=== PATIENT | female | born 1950 | race Caucasian/White ===

== ENCOUNTER 2017-09-10 07:20 | Emergency (ER) | payer MEDICARE, OTHER ==
[~2017-09-10] VITALS: Ht 165.1 cm; Wt 59.3 kg
[~2017-09-10 07:20] MED LIST: BUPR100T16; BUSP5TAB3 PO; DICL100G15 TOP; DOCU100C41 PO; HYDR-3717 PO; LAMO150T PO; LEVO75TA PO; LIOT5TAB7 PO; MIRT15TA8 PO; NAPR220C15 PO; OLAN5TAB3 PO; TRAZ-143 PO
[2017-09-10 07:27] VITALS: BP 162/72
[2017-09-10 08:07] LABS: CLARITY,URINE CLEAR (Clear); COLOR,URINE YELLOW (Yellow); GLUCOSE, URINE NEGATIVE (Neg); KETONES,URINE 15 mg/dl (Neg); LEUKOCYTE ESTERASE ,URINE NEGATIVE (Neg); NITRITES, URINE NEGATIVE (Neg); OCCULT BLOOD,URINE MODERATE (Neg); PH,URINE 5.5 (4.8-8.0); PROTEIN,URINE 30 mg/dl (Neg); UROBILINOGEN,URINE 0.2 E.U/dL (0.2-1.0)
[2017-09-10 08:14] LABS: UA COLLECTION TYPE CLN CATCH MIDSTREAM
[2017-09-10 08:16] LABS: BACTERIA,URINE FEW /HPF (Neg); CAL OXALATE CRYSTALS FEW /HPF (NEGATIVE); MUCUS STRANDS MODERATE /LPF (Neg); SQUAMOUS EPITHELIAL CELL,UR FEW /LPF (FEW)
[2017-09-10] MEDS ORDERED: meclizine 12.5mg tablet PO ONE (08:35)
[2017-09-10] MEDS ORDERED: ondansetron 4mg rapidly disintigrating tab PO ONE (08:35)
[2017-09-10] MEDS ORDERED: ONDA4TAB9 SL (08:43)
[2017-09-10] MEDS ORDERED: CEPH-572 PO (08:43)
[2017-09-10] MEDS ORDERED: MECL-111 PO (08:43)
== END 2017-09-10 09:08 | disposition home or self-care (01) ==
LOC: ER 07:20
DX: E86.0 Dehydration (principal); N39.0 Urinary tract infection, site not specified; F15.10 Other stimulant abuse, uncomplicated; Z60.2 Problems related to living alone; Z79.899 Other long term (current) drug therapy
CPT/HCPCS: 81001; 87088; 99284; J8597

== ENCOUNTER 2017-09-19 16:11 | Emergency (ER) | payer MEDICARE, OTHER ==
[~2017-09-19] VITALS: Ht 5451.6 cm; Wt 62.9 kg
[~2017-09-19 16:11] MED LIST changes: +CEPH-572 PO; +MECL-111 PO
[2017-09-19 16:42] LABS: BASOPHILS % (AUTO) 0.8 % (0-1); EOSINOPHILS # (AUTO) 0.1 X10'3 (0-0.9); EOSINOPHILS % (AUTO) 1.3 % (0-6); HEMATOCRIT 43.4 % (35.0-45.0); HEMOGLOBIN 14.9 g/dl (12.0-16.0); LYMPHOCYTES # (AUTO) 1.2 X10'3 (1.1-4.8); LYMPHOCYTES % (AUTO) 21.9 % (21-51); MEAN CORPUSCULAR HEMOGLOBIN 29.3 PG (27.0-31.0); MEAN CORPUSCULAR HGB CONC 34.3 % (33.0-36.5); MEAN CORPUSCULAR VOLUME 85.7 FL (78-98); MEAN PLATELET VOLUME 9.6 FL (7.4-10.4); MONOCYTES # (AUTO) 0.4 X10'3 (0-0.9); MONOCYTES % (AUTO) 7.7 % (2-12); NEUTROPHILS # (AUTO) 3.6 X10'3 (1.8-7.7); NEUTROPHILS % (AUTO) 68.3 % (42-75); PLATELET COUNT 166 X10'3 (140-440); RED BLOOD COUNT 5.06 X10'6 (4.20-5.60); RED CELL DISTRIBUTION WIDTH 13.7 % (11.5-14.5); WHITE BLOOD COUNT 5.3 X10'3 (4.5-11.0)
[2017-09-19 17:06] LABS: ALANINE AMINOTRANSFERASE 22 U/L (12-78); ALKALINE PHOSPHATASE 101 IU/L (46-116); ANION GAP 14 (8-16); ASPARTATE AMINO TRANSFERASE 19 U/L (10-37); BILIRUBIN,TOTAL 0.5 MG/DL (0.1-1.0); BLOOD UREA NITROGEN 13 MG/DL (7-18); BUN/CREATININE RATIO 16.9 (6.6-38.0); CALCIUM 9.1 MG/DL (8.5-10.1); CHLORIDE 100 MMOL/L (99-107); CREATININE 0.77 MG/DL (0.40-0.90); GLUCOSE 73 MG/DL (70-104); POTASSIUM 3.6 MMOL/L (3.5-5.1); SODIUM 141 MMOL/L (135-145); TOTAL CARBON DIOXIDE 27.4 MMOL/L (24-32); eGFR 75 ML/MIN
[2017-09-19 17:08] LABS: ETHANOL < 0.010 GM/DL (0.0-0.010)
[2017-09-19 17:57] VITALS: BP 146/74
[2017-09-19 18:08] LABS: CLARITY,URINE CLEAR (Clear); COLOR,URINE YELLOW (Yellow); GLUCOSE, URINE NEGATIVE (Neg); KETONES,URINE >=80 mg/dl (Neg); LEUKOCYTE ESTERASE ,URINE NEGATIVE (Neg); NITRITES, URINE NEGATIVE (Neg); OCCULT BLOOD,URINE SMALL (Neg); PROTEIN,URINE 30 mg/dl (Neg); UROBILINOGEN,URINE 0.2 E.U/dL (0.2-1.0)
[2017-09-19 18:13] LABS: UA COLLECTION TYPE VOIDED
[2017-09-19 18:17] LABS: URINE AMPHETAMINE SCREEN NEGATIVE (Neg); URINE BARBITUATE SCREEN NEGATIVE (Neg); URINE BENZODIAZEPINES SCREEN NEGATIVE (Neg); URINE CANNABINOID SCREEN NEGATIVE (Neg); URINE COCAINE SCREEN NEGATIVE (Neg); URINE METHADONE SCREEN NEGATIVE (Neg); URINE OPIATE SCREEN NEGATIVE (Neg); URINE PHENCYCLIDINE SCREEN NEGATIVE (Neg)
[2017-09-19 18:18] LABS: BACTERIA,URINE FEW /HPF (Neg); MUCUS STRANDS FEW /LPF (Neg); RBC,URINE 0-2 /HPF (0-2); SQUAMOUS EPITHELIAL CELL,UR MANY /LPF (FEW); WBC,URINE 0-4 /HPF (0-4)
[2017-09-20] MEDS ORDERED: LEVO100T9 PO (01:05)
[2017-09-20] MEDS ORDERED: LIOT5TAB7 PO (01:28)
== END 2017-09-19 22:51 | disposition home or self-care (01) ==
LOC: ER 16:12
DX: F32.9 Major depressive disorder, single episode, unspecified (principal); R45.851 Suicidal ideations; F41.9 Anxiety disorder, unspecified; F15.10 Other stimulant abuse, uncomplicated; Z59.0 Homelessness; Z91.14 Patient's other noncompliance with medication regimen; Z79.899 Other long term (current) drug therapy
CPT/HCPCS: 36415; 80053; 80305; 80320; 81001; 84443; 85025; 99284

== ENCOUNTER 2017-09-19 21:54 | Inpatient (IN) | payer MEDICARE, OTHER ==
[~2017-09-19] VITALS: Ht 165.1 cm; Wt 62.4 kg
[2017-09-19] MEDS ORDERED: hydrOXYzine 10 MG tablet PO PRN (22:45)
[2017-09-19] MEDS ORDERED: OLANZapine 2.5MG tablet PO ONE (23:40)
[2017-09-19] MEDS ORDERED: lamoTRIgine 100mg tablet PO ONE (23:40)
[2017-09-20] MEDS ORDERED: LEVO100T9 PO (01:05)
[2017-09-20] MEDS ORDERED: LIOT5TAB7 PO (01:28)
[2017-09-20] MEDS ORDERED: non-formulary drug (Diclofenac Sodium (Voltaren) 1 GM) TOP SCH (02:00)
[2017-09-20] MEDS ORDERED: levoTHYROXINE 75mcg tablet PO SCH (07:00)
[2017-09-20] MEDS: levoTHYROXINE 100mcg tablet PO SCH (07:14)
[2017-09-20] MEDS ORDERED: buPROPion 100mg tablet PO SCH (07:30)
[2017-09-20 08:00] VITALS: BP 109/61
[2017-09-20] MEDS ORDERED: docusate sod 100mg capsule PO PRN (08:00)
[2017-09-20] MEDS ORDERED: naproxen sodium 220mg tablet PO PRN (08:00)
[2017-09-20] MEDS ORDERED: OLANZapine 5mg rapidly disint. tablet PO PRN (08:00)
[2017-09-20] MEDS ORDERED: FLUoxetine 10mg capsule PO SCH (08:00)
[2017-09-20] MEDS ORDERED: busPIRone 5mg tablet PO SCH (08:00)
[2017-09-20] MEDS ORDERED: liothyronine sod 5mcg tablet PO SCH (08:00)
[2017-09-20] MEDS ORDERED: lamoTRIgine 100mg tablet PO SCH (08:00)
[2017-09-20] MEDS: lamoTRIgine 100mg tablet PO SCH ×2 (08:10→20:32)
[2017-09-20] MEDS: liothyronine sod 5mcg tablet PO SCH ×2 (08:10→20:32)
[2017-09-20] MEDS ORDERED: pneumococcal 23-VAL P-sac vacc 25 mcg/0.5ml vial IMVAC ONE (10:00)
[2017-09-20 19:37] VITALS: BP 118/53
[2017-09-20] MEDS: OLANZapine 5mg rapidly disint. tablet PO SCH (20:31)
[2017-09-20] MEDS ORDERED: mirtazapine 15mg tablet PO SCH (21:00)
[2017-09-20] MEDS ORDERED: traZODone 50mg tablet PO SCH (21:00)
[2017-09-20] MEDS ORDERED: OLANZapine 5mg rapidly disint. tablet PO SCH (21:00)
[2017-09-20] MEDS ORDERED: lamoTRIgine 25mg tablet PO SCH (21:00)
[2017-09-21] MEDS: levoTHYROXINE 100mcg tablet PO SCH (07:00)
[2017-09-21 08:00] VITALS: BP 102/51
[2017-09-21] MEDS: liothyronine sod 5mcg tablet PO SCH ×2 (08:00→20:36)
[2017-09-21] MEDS: FLUoxetine 20mg capsule PO SCH (08:00)
[2017-09-21] MEDS: lamoTRIgine 100mg tablet PO SCH ×2 (08:00→20:35)
[2017-09-21 19:30] VITALS: BP 116/67
[2017-09-21] MEDS: OLANZapine 5mg rapidly disint. tablet PO SCH (20:35)
[2017-09-22] MEDS: levoTHYROXINE 100mcg tablet PO SCH (07:23)
[2017-09-22 08:16] VITALS: BP 114/61
[2017-09-22] MEDS: liothyronine sod 5mcg tablet PO SCH (08:31)
[2017-09-22] MEDS: FLUoxetine 20mg capsule PO SCH (08:31)
[2017-09-22] MEDS ORDERED: OLAN5TAB29 PO (08:53)
[2017-09-22] MEDS ORDERED: FLUO20CA22 PO (08:53)
[2017-09-22] MEDS ORDERED: lamoTRIgine 25mg tablet PO SCH (09:30)
[2017-09-22] MEDS ORDERED: lamoTRIgine 100mg tablet PO SCH (09:30)
== END 2017-09-22 14:00 | disposition home or self-care (01) | DRG 885 ==
LOC: ADULT MH 21:54
PROVIDERS: ADMIT Psychiatry & Neurology Psychiatry; ATTEND Psychiatry & Neurology Psychiatry
DX: F33.2 Major depressive disorder, recurrent severe without psychotic features (principal); R45.851 Suicidal ideations; Z91.14 Patient's other noncompliance with medication regimen; E03.9 Hypothyroidism, unspecified; Z87.891 Personal history of nicotine dependence; Z81.8 Family history of other mental and behavioral disorders; Z82.49 Family history of ischemic heart disease and other diseases of the circulatory system
CPT/HCPCS: 87070; 90732; 99285

== ENCOUNTER 2017-09-29 14:55 | Emergency (ER) | payer MEDICARE, OTHER ==
[~2017-09-29] VITALS: Ht 165.1 cm; Wt 63.3 kg
[~2017-09-29 14:55] MED LIST changes: -BUPR100T16; -BUSP5TAB3 PO; -CEPH-572 PO; -DICL100G15 TOP; -DOCU100C41 PO; +FLUO20CA22 PO; -HYDR-3717 PO; +LEVO100T9 PO; -LEVO75TA PO; -MECL-111 PO; -MIRT15TA8 PO; -NAPR220C15 PO; +OLAN5TAB29 PO; -OLAN5TAB3 PO; -TRAZ-143 PO
[2017-09-29 15:38] LABS: BASOPHILS % (AUTO) 0.3 % (0-1); EOSINOPHILS # (AUTO) 0.1 X10'3 (0-0.9); EOSINOPHILS % (AUTO) 1.2 % (0-6); HEMATOCRIT 40.1 % (35.0-45.0); HEMOGLOBIN 13.7 g/dl (12.0-16.0); LYMPHOCYTES # (AUTO) 1.4 X10'3 (1.1-4.8); LYMPHOCYTES % (AUTO) 23.2 % (21-51); MEAN CORPUSCULAR HEMOGLOBIN 29.2 PG (27.0-31.0); MEAN CORPUSCULAR HGB CONC 34.2 % (33.0-36.5); MEAN CORPUSCULAR VOLUME 85.4 FL (78-98); MEAN PLATELET VOLUME 9.6 FL (7.4-10.4); MONOCYTES # (AUTO) 0.4 X10'3 (0-0.9); MONOCYTES % (AUTO) 7.2 % (2-12); NEUTROPHILS % (AUTO) 68.1 % (42-75); PLATELET COUNT 149 X10'3 (140-440); RED CELL DISTRIBUTION WIDTH 14.1 % (11.5-14.5); WHITE BLOOD COUNT 5.9 X10'3 (4.5-11.0)
[2017-09-29 15:48] LABS: URINE AMPHETAMINE SCREEN NEGATIVE (Neg); URINE BARBITUATE SCREEN NEGATIVE (Neg); URINE BENZODIAZEPINES SCREEN NEGATIVE (Neg); URINE CANNABINOID SCREEN NEGATIVE (Neg); URINE COCAINE SCREEN NEGATIVE (Neg); URINE METHADONE SCREEN NEGATIVE (Neg); URINE OPIATE SCREEN NEGATIVE (Neg); URINE PHENCYCLIDINE SCREEN NEGATIVE (Neg)
[2017-09-29 16:02] LABS: ALANINE AMINOTRANSFERASE 20 U/L (12-78); ALBUMIN 3.8 G/DL (3.4-5.0); ALKALINE PHOSPHATASE 90 IU/L (46-116); ANION GAP 11 (8-16); ASPARTATE AMINO TRANSFERASE 15 U/L (10-37); BILIRUBIN,TOTAL 0.4 MG/DL (0.1-1.0); BLOOD UREA NITROGEN 15 MG/DL (7-18); BUN/CREATININE RATIO 18.3 (6.6-38.0); CHLORIDE 105 MMOL/L (99-107); CREATININE 0.82 MG/DL (0.40-0.90); ETHANOL < 0.010 GM/DL (0.0-0.010); GLUCOSE 100 MG/DL (70-104); POTASSIUM 3.8 MMOL/L (3.5-5.1); SODIUM 144 MMOL/L (135-145); TOTAL CARBON DIOXIDE 28.2 MMOL/L (24-32); TOTAL PROTEIN 7.5 G/DL (6.4-8.2); eGFR 70 ML/MIN
[2017-09-29 17:45] LABS: CLARITY,URINE CLEAR (Clear); COLOR,URINE YELLOW (Yellow); GLUCOSE, URINE NEGATIVE (Neg); KETONES,URINE NEGATIVE (Neg); LEUKOCYTE ESTERASE ,URINE NEGATIVE (Neg); NITRITES, URINE NEGATIVE (Neg); OCCULT BLOOD,URINE TRACE-INTACT (Neg); PH,URINE 5.5 (4.8-8.0); PROTEIN,URINE TRACE mg/dl (Neg); UROBILINOGEN,URINE 0.2 E.U/dL (0.2-1.0)
[2017-09-29 17:50] LABS: UA COLLECTION TYPE NON-SPECIFIED
[2017-09-29 17:53] LABS: BACTERIA,URINE NONE SEEN /HPF (Neg); RBC,URINE 0-2 /HPF (0-2); SQUAMOUS EPITHELIAL CELL,UR FEW /LPF (FEW); WBC,URINE 0-4 /HPF (0-4)
[2017-09-29] MEDS ORDERED: OLANZapine 5mg rapidly disint. tablet PO SCH (21:00)
[2017-09-29] MEDS: lamoTRIgine 25mg tablet PO SCH (21:31)
[2017-09-29] MEDS: liothyronine sod 5mcg tablet PO SCH (21:46)
[2017-09-30 05:56] VITALS: BP 110/54
[2017-09-30] MEDS: liothyronine sod 5mcg tablet PO SCH (07:44)
[2017-09-30] MEDS: lamoTRIgine 25mg tablet PO SCH (07:44)
[2017-09-30] MEDS ORDERED: FLUoxetine 20mg capsule PO SCH (08:00)
[2017-09-30] MEDS ORDERED: levoTHYROXINE 100mcg tablet PO SCH (08:00)
== END 2017-09-30 14:07 ==
LOC: ER 14:56
DX: F31.30 Bipolar disorder, current episode depressed, mild or moderate severity, unspecified (principal); F32.9 Major depressive disorder, single episode, unspecified; R45.851 Suicidal ideations; F41.9 Anxiety disorder, unspecified; F15.10 Other stimulant abuse, uncomplicated; Z59.0 Homelessness; Z60.2 Problems related to living alone
CPT/HCPCS: 36415; 80053; 80305; 80320; 81001; 84443; 85025; 99285

== ENCOUNTER 2018-08-14 20:38 | Emergency (ER) | payer MEDICARE, OTHER ==
[~2018-08-14] VITALS: Ht 165.1 cm; Wt 76.4 kg
[2018-08-14 20:57] VITALS: BP 148/79
[2018-08-14] MEDS ORDERED: ketorolac tromethamine 15mg/ml inj. IV ONE (22:45)
[2018-08-14] MEDS ORDERED: ondansetron/PF 4mg/2ml inj IV ONE (22:45)
[2018-08-14] MEDS ORDERED: normal saline 1000ML IV soln IVB ONE (22:45)
[2018-08-14 23:15] LABS: ALANINE AMINOTRANSFERASE 14 U/L (12-78); ALBUMIN 3.7 G/DL (3.4-5.0); ALBUMIN/GLOBULIN RATIO 1.1 (1.1-1.5); ALKALINE PHOSPHATASE 94 IU/L (46-116); ANION GAP 10 (8-16); ASPARTATE AMINO TRANSFERASE 13 U/L (10-37); BILIRUBIN,TOTAL 0.2 MG/DL (0.1-1.0); BLOOD UREA NITROGEN 24 MG/DL (7-18); BUN/CREATININE RATIO 28.2 (6.6-38.0); CALCIUM 8.7 MG/DL (8.5-10.1); CHLORIDE 104 MMOL/L (99-107); CREATININE 0.85 MG/DL (0.40-0.90); GLUCOSE 94 MG/DL (70-104); POTASSIUM 4.4 MMOL/L (3.5-5.1); SODIUM 140 MMOL/L (135-145); TOTAL CARBON DIOXIDE 25.9 MMOL/L (24-32); TOTAL PROTEIN 7.2 G/DL (6.4-8.2); eGFR 67 ML/MIN
[2018-08-14 23:43] LABS: URINE AMPHETAMINE SCREEN NEGATIVE (Neg); URINE BARBITUATE SCREEN NEGATIVE (Neg); URINE BENZODIAZEPINES SCREEN NEGATIVE (Neg); URINE CANNABINOID SCREEN NEGATIVE (Neg); URINE COCAINE SCREEN NEGATIVE (Neg); URINE METHADONE SCREEN NEGATIVE (Neg); URINE OPIATE SCREEN NEGATIVE (Neg); URINE PHENCYCLIDINE SCREEN NEGATIVE (Neg)
[2018-08-14 23:44] LABS: BASOPHILS % (AUTO) 0.7 % (0-1); EOSINOPHILS # (AUTO) 0.2 X10'3 (0-0.9); EOSINOPHILS % (AUTO) 2.6 % (0-6); HEMATOCRIT 39.2 % (35.0-45.0); HEMOGLOBIN 13.1 g/dl (12.0-16.0); LYMPHOCYTES # (AUTO) 2.1 X10'3 (1.1-4.8); LYMPHOCYTES % (AUTO) 35.8 % (21-51); MEAN CORPUSCULAR HEMOGLOBIN 29.4 PG (27.0-31.0); MEAN CORPUSCULAR HGB CONC 33.6 g/dL (33.0-36.5); MEAN CORPUSCULAR VOLUME 87.5 FL (78-98); MEAN PLATELET VOLUME 8.2 FL (7.4-10.4); MONOCYTES # (AUTO) 0.5 X10'3 (0-0.9); MONOCYTES % (AUTO) 7.6 % (2-12); NEUTROPHILS # (AUTO) 3.1 X10'3 (1.8-7.7); NEUTROPHILS % (AUTO) 53.3 % (42-75); PLATELET COUNT 264 X10'3 (140-440); RED BLOOD COUNT 4.48 X10'6 (4.20-5.60); WHITE BLOOD COUNT 5.9 X10'3 (4.5-11.0)
[2018-08-14 23:55] LABS: CLARITY,URINE CLEAR (Clear); COLOR,URINE YELLOW (Yellow); GLUCOSE, URINE NEGATIVE (Neg); KETONES,URINE NEGATIVE (Neg); LEUKOCYTE ESTERASE ,URINE NEGATIVE (Neg); NITRITES, URINE NEGATIVE (Neg); OCCULT BLOOD,URINE TRACE-INTACT (Neg); PH,URINE 5.5 (4.8-8.0); PROTEIN,URINE NEGATIVE (Neg); UA COLLECTION TYPE CLN CATCH MIDSTREAM; UROBILINOGEN,URINE 0.2 E.U/dL (0.2-1.0)
[2018-08-15 00:03] LABS: BACTERIA,URINE FEW /HPF (Neg); RBC,URINE 0-2 /HPF (0-2); WBC,URINE 0-4 /HPF (0-4)
[2018-08-15 00:04] LABS: MUCUS STRANDS FEW /LPF (Neg); SQUAMOUS EPITHELIAL CELL,UR MODERATE /LPF (FEW)
== END 2018-08-15 00:26 | disposition home or self-care (01) ==
LOC: ER 20:39
DX: N20.0 Calculus of kidney (principal); Z87.442 Personal history of urinary calculi; F15.90 Other stimulant use, unspecified, uncomplicated; Z79.899 Other long term (current) drug therapy; Z60.2 Problems related to living alone; Z59.0 Homelessness
CPT/HCPCS: 36415; 74176; 80053; 80305; 81001; 85025; 96374; 96375; 99284; J1885; J2405; J7030

== ENCOUNTER 2018-12-05 20:26 | Emergency (ER) | payer MEDICARE, OTHER ==
[~2018-12-05] VITALS: Ht 165.1 cm; Wt 70.5 kg
[~2018-12-05 20:26] MED LIST changes: -LIOT5TAB7 PO; +LIOT5TAB8 PO
[2018-12-05 20:31] VITALS: BP 161/76
[2018-12-05 22:10] LABS: BASOPHILS # (AUTO) 0.1 X10'3 (0-0.2); EOSINOPHILS # (AUTO) 0.3 X10'3 (0-0.9); EOSINOPHILS % (AUTO) 3.9 % (0-6); HEMATOCRIT 38.3 % (35.0-45.0); HEMOGLOBIN 13.2 g/dl (12.0-16.0); LYMPHOCYTES % (AUTO) 28.9 % (21-51); MEAN CORPUSCULAR HEMOGLOBIN 29.7 PG (27.0-31.0); MEAN CORPUSCULAR HGB CONC 34.4 g/dL (33.0-36.5); MEAN CORPUSCULAR VOLUME 86.3 FL (78-98); MEAN PLATELET VOLUME 8.2 FL (7.4-10.4); MONOCYTES # (AUTO) 0.6 X10'3 (0-0.9); MONOCYTES % (AUTO) 8.2 % (2-12); NEUTROPHILS # (AUTO) 4.1 X10'3 (1.8-7.7); PLATELET COUNT 249 X10'3 (140-440); RED BLOOD COUNT 4.44 X10'6 (4.20-5.60); RED CELL DISTRIBUTION WIDTH 14.2 % (11.5-14.5)
[2018-12-05 22:26] LABS: ALANINE AMINOTRANSFERASE 24 U/L (12-78); ALBUMIN 3.2 G/DL (3.4-5.0); ALBUMIN/GLOBULIN RATIO 0.9 (1.1-1.5); ALKALINE PHOSPHATASE 118 IU/L (46-116); ANION GAP 6 (8-16); ASPARTATE AMINO TRANSFERASE 21 U/L (10-37); BILIRUBIN,TOTAL 0.2 MG/DL (0.1-1.0); BLOOD UREA NITROGEN 12 MG/DL (7-18); BUN/CREATININE RATIO 15.8 (6.6-38.0); CALCIUM 8.5 MG/DL (8.5-10.1); CHLORIDE 107 MMOL/L (99-107); CREATININE 0.76 MG/DL (0.40-0.90); GLUCOSE 117 MG/DL (70-104); POTASSIUM 3.3 MMOL/L (3.5-5.1); SODIUM 140 MMOL/L (135-145); TOTAL CARBON DIOXIDE 27.5 MMOL/L (24-32); TOTAL PROTEIN 6.9 G/DL (6.4-8.2); eGFR 76 ML/MIN
[2018-12-05] MEDS ORDERED: potassium Cl 20 mEq SR tablet PO STA (22:40)
[2018-12-05 22:44] LABS: CLARITY,URINE CLEAR (Clear); COLOR,URINE YELLOW (Yellow); GLUCOSE, URINE NEGATIVE (Neg); KETONES,URINE NEGATIVE (Neg); LEUKOCYTE ESTERASE ,URINE NEGATIVE (Neg); NITRITES, URINE NEGATIVE (Neg); OCCULT BLOOD,URINE TRACE-INTACT (Neg); PROTEIN,URINE TRACE mg/dl (Neg); UROBILINOGEN,URINE 0.2 E.U/dL (0.2-1.0)
[2018-12-05 22:47] LABS: UA COLLECTION TYPE CLN CATCH MIDSTREAM
[2018-12-05 22:50] LABS: BACTERIA,URINE FEW /HPF (Neg); MUCUS STRANDS MANY /LPF (Neg); RBC,URINE 0-2 /HPF (0-2); SQUAMOUS EPITHELIAL CELL,UR MODERATE /LPF (FEW); WBC,URINE 0-4 /HPF (0-4)
== END 2018-12-05 23:01 | disposition home or self-care (01) ==
LOC: ER 20:27
DX: S70.361A Insect bite (nonvenomous), right thigh, initial encounter (principal); R11.2 Nausea with vomiting, unspecified; R19.7 Diarrhea, unspecified; F15.90 Other stimulant use, unspecified, uncomplicated; Z60.2 Problems related to living alone; Z59.0 Homelessness; Z79.899 Other long term (current) drug therapy; W57.XXXA Bitten or stung by nonvenomous insect and other nonvenomous arthropods, initial encounter; Y93.01 Activity, walking, marching and hiking; Y92.89 Other specified places as the place of occurrence of the external cause; Y99.8 Other external cause status
CPT/HCPCS: 36415; 80053; 81001; 85025; 99283

== ENCOUNTER 2019-12-18 15:44 | Emergency (ER) | payer MEDICARE, OTHER ==
[~2019-12-18] VITALS: Ht 165.1 cm; Wt 63.6 kg
[~2019-12-18 15:44] MED LIST changes: +FLUO-167 PO; -FLUO20CA22 PO; -LAMO150T PO; +LAMO150T6 PO; +LIOT5TAB10 PO; -LIOT5TAB8 PO
[2019-12-18 16:35] LABS: BASOPHILS % (AUTO) 0.6 % (0-1); EOSINOPHILS # (AUTO) 0.1 X10'3 (0-0.9); EOSINOPHILS % (AUTO) 2.3 % (0-6); HEMATOCRIT 42.4 % (35.0-45.0); LYMPHOCYTES # (AUTO) 1.7 X10'3 (1.1-4.8); LYMPHOCYTES % (AUTO) 31.5 % (21-51); MEAN CORPUSCULAR HEMOGLOBIN 28.9 PG (27.0-31.0); MEAN CORPUSCULAR HGB CONC 33.1 g/dL (33.0-36.5); MEAN CORPUSCULAR VOLUME 87.4 FL (78-98); MEAN PLATELET VOLUME 9.6 FL (7.4-10.4); MONOCYTES # (AUTO) 0.4 X10'3 (0-0.9); MONOCYTES % (AUTO) 8.1 % (2-12); NEUTROPHILS % (AUTO) 57.5 % (42-75); PLATELET COUNT 210 X10'3 (140-440); RED BLOOD COUNT 4.86 X10'6 (4.20-5.60); WHITE BLOOD COUNT 5.3 X10'3 (4.5-11.0)
[2019-12-18 16:43] LABS: PARTIAL THROMBOPLASTIN TIME 29 SECONDS (22-32)
[2019-12-18 16:46] LABS: ALANINE AMINOTRANSFERASE 21 U/L (12-78); ALBUMIN 3.8 G/DL (3.4-5.0); ALKALINE PHOSPHATASE 85 IU/L (46-116); ANION GAP 12 (8-16); ASPARTATE AMINO TRANSFERASE 26 U/L (10-37); BILIRUBIN,TOTAL 0.4 MG/DL (0.1-1.0); BLOOD UREA NITROGEN 18 MG/DL (7-18); BUN/CREATININE RATIO 19.1 (6.6-38.0); CALCIUM 8.5 MG/DL (8.5-10.1); CHLORIDE 104 MMOL/L (99-107); CREATININE 0.94 MG/DL (0.40-0.90); GLUCOSE 95 MG/DL (70-104); POTASSIUM 3.2 MMOL/L (3.5-5.1); SODIUM 142 MMOL/L (135-145); TOTAL CARBON DIOXIDE 25.7 MMOL/L (24-32); TOTAL PROTEIN 7.5 G/DL (6.4-8.2); eGFR 59 ML/MIN
[2019-12-18] MEDS ORDERED: levoTHYROXINE 100mcg tablet PO STA (18:49)
[2019-12-18] MEDS ORDERED: LIOthyronine 25mcg tablet PO STA (18:51)
[2019-12-18] MEDS ORDERED: lithium carbonate 300mg SR tablet (LithoBID) PO SCH (18:55)
[2019-12-18] MEDS ORDERED: LIOT5TAB10 PO (18:57)
[2019-12-18] MEDS ORDERED: SYN0.112T PO (18:57)
[2019-12-18] MEDS ORDERED: OLAN2.5T3 PO (18:57)
[2019-12-18] MEDS ORDERED: LITH150C8 PO (18:57)
[2019-12-18] MEDS ORDERED: liothyronine sod 5mcg tablet PO STA (19:18)
[2019-12-18] MEDS ORDERED: lithium carbonate 150mg capsule PO SCH (19:19)
[2019-12-18 19:48] VITALS: BP 152/73
== END 2019-12-18 19:49 | disposition home or self-care (01) ==
LOC: ER 15:44
DX: E03.9 Hypothyroidism, unspecified (principal); F41.9 Anxiety disorder, unspecified; F31.9 Bipolar disorder, unspecified; F15.90 Other stimulant use, unspecified, uncomplicated; Z60.2 Problems related to living alone; Z79.899 Other long term (current) drug therapy
CPT/HCPCS: 36415; 71045; 80053; 84484; 85025; 85610; 85730; 93005; 99285

== ENCOUNTER 2019-12-21 04:48 | Emergency (ER) | payer MEDICARE, OTHER ==
[~2019-12-21] VITALS: Ht 165.1 cm; Wt 61.4 kg
[~2019-12-21 04:48] MED LIST changes: +LITH150C8 PO; +OLAN2.5T3 PO; +SYN0.112T PO
[2019-12-21] MEDS ORDERED: LORazepam 1 MG tablet PO ONE (08:30)
[2019-12-21 09:04] LABS: BASOPHILS # (AUTO) 0.1 X10'3 (0-0.2); EOSINOPHILS # (AUTO) 0.1 X10'3 (0-0.9); EOSINOPHILS % (AUTO) 1.3 % (0-6); HEMATOCRIT 39.3 % (35.0-45.0); LYMPHOCYTES # (AUTO) 1.3 X10'3 (1.1-4.8); LYMPHOCYTES % (AUTO) 22.3 % (21-51); MEAN CORPUSCULAR HEMOGLOBIN 29.2 PG (27.0-31.0); MEAN CORPUSCULAR HGB CONC 33.2 g/dL (33.0-36.5); MEAN CORPUSCULAR VOLUME 87.9 FL (78-98); MEAN PLATELET VOLUME 9.8 FL (7.4-10.4); MONOCYTES # (AUTO) 0.5 X10'3 (0-0.9); MONOCYTES % (AUTO) 8.5 % (2-12); NEUTROPHILS # (AUTO) 3.9 X10'3 (1.8-7.7); NEUTROPHILS % (AUTO) 66.9 % (42-75); PLATELET COUNT 174 X10'3 (140-440); RED BLOOD COUNT 4.47 X10'6 (4.20-5.60); RED CELL DISTRIBUTION WIDTH 14.7 % (11.5-14.5); WHITE BLOOD COUNT 5.9 X10'3 (4.5-11.0)
[2019-12-21 09:16] LABS: ALANINE AMINOTRANSFERASE 20 U/L (12-78); ALBUMIN 3.5 G/DL (3.4-5.0); ALKALINE PHOSPHATASE 75 IU/L (46-116); ANION GAP 6 (8-16); ASPARTATE AMINO TRANSFERASE 23 U/L (10-37); BILIRUBIN,TOTAL 0.6 MG/DL (0.1-1.0); BLOOD UREA NITROGEN 20 MG/DL (7-18); BUN/CREATININE RATIO 21.3 (6.6-38.0); CALCIUM 8.5 MG/DL (8.5-10.1); CHLORIDE 106 MMOL/L (99-107); CREATININE 0.94 MG/DL (0.40-0.90); ETHANOL < 0.010 GM/DL (0.0-0.010); GLUCOSE 67 MG/DL (70-104); POTASSIUM 3.2 MMOL/L (3.5-5.1); SODIUM 139 MMOL/L (135-145); TOTAL CARBON DIOXIDE 27.2 MMOL/L (24-32); TOTAL PROTEIN 6.9 G/DL (6.4-8.2); eGFR 59 ML/MIN
--- NOTE | 2019-12-21 09:38 | NUR ---
Break note:Patient in the room,sitting at the edge of the bed.
--- NOTE | 2019-12-21 11:30 | NUR ---
Patient arrived from the main ED accompanied by unit tech, no distress observed, ambulating self. She is pleasant and cooperative with care and denies SI/HI, A/VH. She reports Hx of bipolar and hypothyroid. She is somewhat bizarre but has linear thought, but intermittently goes on tangents but comes back to the topic appropriately. Patient was changed in to [facility] scrubs prior to arriving to unit. All items inventoried and stored for safe keeping. Med rec completed by pharmacist. Patient offered refreshments and encouraged to leave urine specimen, but patient unable. Pt is a non-smoker. She does state that she has one alcoholic beverage daily.
[2019-12-21] MEDS ORDERED: LEVO75TA7 PO (11:51)
[2019-12-21] MEDS ORDERED: LIT300C PO (11:51)
--- NOTE | 2019-12-21 13:00 | NUR ---
Patient is sitting at bedside eating lunch. No distress observed.
[2019-12-21] MEDS ORDERED: OLAN2.5T28 PO (13:05)
[2019-12-21] MEDS ORDERED: LITH150C8 PO (13:05)
[2019-12-21] MEDS ORDERED: LEVO112T5 PO (13:05)
[2019-12-21] MEDS ORDERED: LAMO150T6 PO (13:05)
[2019-12-21] MEDS ORDERED: LIOT5TAB10 PO (13:05)
[2019-12-21] MEDS ORDERED: ESTR0.5T28 PO (13:05)
--- NOTE | 2019-12-21 14:10 | NUR ---
Patient is exhibiting some loose associations when overhearing other conversations. She is redirectable.
--- NOTE | 2019-12-21 15:36 | NUR ---
Patient remains sitting at side of bed nibbling on the remains of her lunch. She asks if she can check on her dog and states to "call the carreno". She is offered the phone however, she does not the phone number. No distress observed.
--- NOTE | 2019-12-21 15:48 | NUR ---
Patients Daughter: Nancy #: [phone]. Patient gave verbal permission to speak to daughter. Patient is labile and vascilates between yelling and being tearful. Daughter states that the patient has bipolar type 1. She states that she feels like patient may not be taking her medication.
--- NOTE | 2019-12-21 16:15 | NUR ---
Patient is aided in calling her former landlord and is observed talking appropriately on the phone. Patient was able to leave a urine sample. Results are pending.
[2019-12-21 17:15] LABS: URINE HCG NEGATIVE (NEG)
[2019-12-21 17:29] LABS: URINE AMPHETAMINE SCREEN NEGATIVE (Neg); URINE BARBITUATE SCREEN NEGATIVE (Neg); URINE BENZODIAZEPINES SCREEN NEGATIVE (Neg); URINE CANNABINOID SCREEN NEGATIVE (Neg); URINE COCAINE SCREEN NEGATIVE (Neg); URINE METHADONE SCREEN NEGATIVE (Neg); URINE OPIATE SCREEN NEGATIVE (Neg); URINE PHENCYCLIDINE SCREEN NEGATIVE (Neg)
--- NOTE | 2019-12-21 18:30 | NUR ---
Patient sitting up at bedside, feet on the floor. Patient labile at times. Tangential speech. Patient laughs then cries.
[2019-12-21] MEDS: OLANZapine 2.5MG tablet PO PRN (19:02)
--- NOTE | 2019-12-21 19:05 | NUR ---
The patient has been Zyprexa 2.5 mg PO for her anxiety/depression. Patient is midication compliant.
--- NOTE | 2019-12-21 19:10 | NUR ---
Patient has eaten her dinner. Patient exhibits anxiety, she speaks to this health science writer. Patient denies S/I or H/I. Deluions are present, patient asks this health science writer if "I'm going to get a don't kill pill." Patient talks about this writers dog,"(which he does not have,) she states his name is Ayo." Calming measures are used. The patient is reoriented to situation and place. The patient is advised that she is in a safe place.
--- NOTE | 2019-12-21 19:27 | NUR ---
Packet sent to [facility]
[2019-12-21] MEDS: lithium carbonate 150mg capsule PO SCH (19:44)
[2019-12-21] MEDS ORDERED: lithium carbonate 300mg SR tablet (LithoBID) PO SCH (20:00)
[2019-12-21] MEDS ORDERED: Melatonin 3mg tablet PO SCH (21:00)
--- NOTE | 2019-12-21 21:02 | NUR ---
Patient is now resting quietly. She was up once to void. Melatonin was administered for sleep, Wheelwright was started also as patients Wheelwright levels were low. Ear plugs, warm blankets, eye covers were given to patient. She is sleeping in a mid fowlers position now. Two rails up.
--- NOTE | 2019-12-21 23:51 | NUR ---
Patient is sleeping quietly on her left side.
--- NOTE | 2019-12-22 03:47 | NUR ---
Patient awoke, ambulated to the bathroom to void. Upon return to the nursing station this patient exhibited anger at "bugs coming out at my home, I'm here because of that bitch!" The patient asked when she could get out of here. The patient was advised that the [facility] Nurse would most likely be rounding in the am. The patient now sits at bedside and is coloring.
--- NOTE | 2019-12-22 05:48 | NUR ---
Patient remains awake, coloring, sitting at bedside. Patient denies any need to rest.
[2019-12-22 06:13] VITALS: BP 130/65
[2019-12-22] MEDS ORDERED: levoTHYROXINE 112mcg tablet PO SCH (07:30)
[2019-12-22] MEDS ORDERED: liothyronine sod 5mcg tablet PO SCH (07:30)
[2019-12-22] MEDS: lithium carbonate 150mg capsule PO SCH (07:47)
[2019-12-22] MEDS ORDERED: lamoTRIgine 25mg tablet PO SCH (08:00)
--- NOTE | 2019-12-22 09:01 | NUR ---
Patient is pleasant and cooperative and is talking on the phone with her daughter. Driss [facility] is here to assess patient.
--- NOTE | 2019-12-22 09:44 | NUR ---
Patient is sitting at side of bed coloring.
[2019-12-22] MEDS ORDERED: acetaminophen 325mg tablet PO ONE (10:25)
--- NOTE | 2019-12-22 11:39 | NUR ---
Patient is seen stretching and walking in the unit. She states "I work like a dog at home, I don't now what it's like to lay around all day". She is pleasant and appropriate during conversation.
--- NOTE | 2019-12-22 12:31 | NUR ---
Patient is pleasant and socializing appropriately with staff and peers. She is currently drawing. Will continue to monitor.
--- NOTE | 2019-12-22 13:09 | NUR ---
Patient is sitting up at bed side in chair, eating lunch, no distress observed.
[2019-12-22] MEDS: OLANZapine 2.5MG tablet PO PRN (14:27)
--- NOTE | 2019-12-22 14:37 | NUR ---
Patient had a verbal outburst and states that she can't go back over to her bed. Patient in adjacent bed is "too much". Patient goes to the restroom and is tearful. She is breathing rapidly. Patient given Zyprexa. Patient states that she is "having a panic attack". MD notified.
[2019-12-22] MEDS ORDERED: LORazepam 1 MG tablet PO ONE (14:40)
--- NOTE | 2019-12-22 15:20 | NUR ---
Medications have been delivered by Case Management. Taxi contacted for transportation.
--- NOTE | 2019-12-22 15:27 | NUR ---
I WAS ASKED BY OSCAR IN THE ED TO ASSIST PATIENT IN OBTAINING HOME MEDS. SHE HAS BEEN CLEARED BY MENTAL HEALTH. I SPOKE WITH PATIENT IN ED. SHE STATES THAT SHE HAD LOST ALL OF HER MEDS DURING A MOVE. SHE WAS MOVING HER RV/HOME FROM A PARK, TO A PRIVATE PROPERTY. SHE STATES THAT SHE BAGGED HER MEDS, AND PLACED THEM IN A SAFE PLACE, AND NOW CANNOT FIND THEM, DESPITE GOING THROUGH HER HOME, AND CAR. SHE STATES THAT SHE DOES HAVE FUNDS IN HER DARBY ACCOUNT, BUT STILL HAS NOT RECEIVED HER DARBY DEBIT CARD FROM [employer]. SHE DOES NOT HAVE [place] OR OTHER AVAILABLE CREDIT. I RECEIVED APPROVAL FROM DIRECTOR, ODIN, AND NIRAJ, [employer]ALENT SOURCING SPECIALIST, TO REMOVE FUNDS FROM [employer], AND DOMINGO PAY FOR THE MEDS. I CALLED MAICO AT [facility], HE GAVE ME 10 DAY PARTIAL FILLS ON LITHIUM, ONLAZAPINE, AND LAMOTRIGINE, AT 6.99 EACH. LIOTHYROXINE, ESTRADIOL, AND LEVOTHYROXINE ALSO FILLED. TOTAL FOR ALL MEDS IS $49.20. I GAVE MEDICATIONS TO PATIENT AND EXPLAINED THAT SHE HAS A 10 DAY SUPPLY. SHE STATES THAT SHE HAS A FOLLOW UP APPOINTMENT WITH HER PCP. SHE IS AGREEABLE TO CALLING [employer] AGAIN TO ASK FOR HER DARBY DEBIT CARD. SHE IS AMBULATORY, AND DOES NOT REQUIRE DME OR OXYGEN. DISCUSSED WITH RN. PLAN DC HOME.
--- NOTE | 2019-12-22 15:41 | NUR ---
Patient d/c'd from the facility. All items inventoried and in patient's possession at time of discharge. Patient ambulated self, accompanied by security, no distress observed. All valuables retrieved from safe and in patients possession. Discharge plan was discussed with patient. Questions were answered and patient verbalized understanding. Patient denies SI, HI, A/VH, she denies concerns and states she will follow up with PCP. Medications delivered to patient by Case Management.
== END 2019-12-22 15:41 ==
LOC: ER 04:49
DX: F41.9 Anxiety disorder, unspecified (principal); F31.9 Bipolar disorder, unspecified; F17.200 Nicotine dependence, unspecified, uncomplicated; F15.90 Other stimulant use, unspecified, uncomplicated; Z60.2 Problems related to living alone; Z79.899 Other long term (current) drug therapy
CPT/HCPCS: 36415; 80053; 80178; 80305; 80320; 81025; 84443; 85025; 99285

== ENCOUNTER 2021-08-14 16:17 | Emergency (ER) | payer MEDICARE, OTHER ==
[~2021-08-14 16:17] MED LIST changes: +ESTR0.5T28 PO; -FLUO-167 PO; -LEVO100T9 PO; +LEVO112T5 PO; +OLAN2.5T28 PO; -OLAN2.5T3 PO; -OLAN5TAB29 PO; -SYN0.112T PO
[2021-08-14 16:28] VITALS: BP 143/77
[2021-08-14 17:15] LABS: CLARITY,URINE CLEAR (Clear); COLOR,URINE YELLOW (Yellow); GLUCOSE, URINE NEGATIVE (Neg); KETONES,URINE NEGATIVE (Neg); LEUKOCYTE ESTERASE ,URINE NEGATIVE (Neg); NITRITES, URINE NEGATIVE (Neg); OCCULT BLOOD,URINE NEGATIVE (Neg); PROTEIN,URINE NEGATIVE (Neg); UROBILINOGEN,URINE 0.2 E.U/dL (0.2-1.0)
[2021-08-14 17:20] LABS: BASOPHILS % (AUTO) 0.5 % (0-1); EOSINOPHILS # (AUTO) 0.1 X10'3 (0-0.9); EOSINOPHILS % (AUTO) 1.8 % (0-6); HEMATOCRIT 39.9 % (35.0-45.0); HEMOGLOBIN 13.1 g/dl (12.0-16.0); LYMPHOCYTES # (AUTO) 1.6 X10'3 (1.1-4.8); LYMPHOCYTES % (AUTO) 19.9 % (21-51); MEAN CORPUSCULAR HEMOGLOBIN 29.6 PG (27.0-31.0); MEAN CORPUSCULAR HGB CONC 32.8 g/dL (33.0-36.5); MEAN CORPUSCULAR VOLUME 90.1 FL (78-98); MEAN PLATELET VOLUME 10.1 FL (7.4-10.4); MONOCYTES # (AUTO) 0.6 X10'3 (0-0.9); MONOCYTES % (AUTO) 7.5 % (2-12); NEUTROPHILS # (AUTO) 5.6 X10'3 (1.8-7.7); NEUTROPHILS % (AUTO) 70.3 % (42-75); PLATELET COUNT 256 X10'3 (140-440); RED BLOOD COUNT 4.43 X10'6 (4.20-5.60); RED CELL DISTRIBUTION WIDTH 14.3 % (11.5-14.5)
[2021-08-14 17:22] LABS: UA COLLECTION TYPE NON-SPECIFIED
[2021-08-14 17:31] LABS: ALANINE AMINOTRANSFERASE 25 U/L (12-78); ALBUMIN 3.5 G/DL (3.4-5.0); ALKALINE PHOSPHATASE 90 IU/L (46-116); ANION GAP 11 (8-16); ASPARTATE AMINO TRANSFERASE 17 U/L (10-37); BILIRUBIN,TOTAL 0.1 MG/DL (0.1-1.0); BLOOD UREA NITROGEN 15 MG/DL (7-18); BUN/CREATININE RATIO 17.9 (6.6-38.0); CALCIUM 8.4 MG/DL (8.5-10.1); CHLORIDE 108 MMOL/L (99-107); CREATININE 0.84 MG/DL (0.40-0.90); GLUCOSE 126 MG/DL (70-104); LIPASE 153 U/L (73-393); POTASSIUM 3.6 MMOL/L (3.5-5.1); SODIUM 140 MMOL/L (135-145); TOTAL CARBON DIOXIDE 21.3 MMOL/L (24-32); TOTAL PROTEIN 6.9 G/DL (6.4-8.2); eGFR 67 ML/MIN
--- NOTE | 2021-08-14 18:00 | NUR ---
Brought discharge paperwork to patient room; patient had already left after receiving verbal discharge instructions from provider.
== END 2021-08-14 18:03 | disposition home or self-care (01) ==
LOC: ER 16:18
DX: S76.012A Strain of muscle, fascia and tendon of left hip, initial encounter (principal); R10.32 Left lower quadrant pain; F41.9 Anxiety disorder, unspecified; F31.9 Bipolar disorder, unspecified; F15.90 Other stimulant use, unspecified, uncomplicated; Z60.2 Problems related to living alone; Z79.899 Other long term (current) drug therapy; X58.XXXA Exposure to other specified factors, initial encounter; Y93.89 Activity, other specified; Y92.89 Other specified places as the place of occurrence of the external cause; Y99.8 Other external cause status
CPT/HCPCS: 36415; 76857; 80053; 81003; 83690; 85025; 99284

== ENCOUNTER 2021-08-24 21:57 | Inpatient (IN) | payer MEDICARE, OTHER ==
[~2021-08-24] VITALS: Ht 165.1 cm; Wt 90.9 kg
[2021-08-24] MEDS ORDERED: nitroGLYCERIN 0.4mg SUBLingual tab SL PRN (22:05)
[2021-08-24] MEDS ORDERED: aspirin 81mg tab.chew PO ONE (22:05)
[2021-08-24 22:36] LABS: BASOPHILS % (AUTO) 0.5 % (0-1); EOSINOPHILS # (AUTO) 0.2 X10'3 (0-0.9); EOSINOPHILS % (AUTO) 2.4 % (0-6); HEMATOCRIT 38.9 % (35.0-45.0); HEMOGLOBIN 13.1 g/dl (12.0-16.0); LYMPHOCYTES % (AUTO) 25.7 % (21-51); MEAN CORPUSCULAR HGB CONC 33.6 g/dL (33.0-36.5); MEAN CORPUSCULAR VOLUME 89.2 FL (78-98); MONOCYTES # (AUTO) 0.6 X10'3 (0-0.9); MONOCYTES % (AUTO) 7.5 % (2-12); NEUTROPHILS % (AUTO) 63.9 % (42-75); PLATELET COUNT 232 X10'3 (140-440); RED BLOOD COUNT 4.36 X10'6 (4.20-5.60); RED CELL DISTRIBUTION WIDTH 14.6 % (11.5-14.5); WHITE BLOOD COUNT 7.8 X10'3 (4.5-11.0)
[2021-08-24 22:48] LABS: ALANINE AMINOTRANSFERASE 31 U/L (12-78); ALBUMIN 3.3 G/DL (3.4-5.0); ALBUMIN/GLOBULIN RATIO 0.8 (1.1-1.5); ALKALINE PHOSPHATASE 108 IU/L (46-116); ANION GAP 8 (8-16); ASPARTATE AMINO TRANSFERASE 16 U/L (10-37); BILIRUBIN,TOTAL 0.1 MG/DL (0.1-1.0); BLOOD UREA NITROGEN 12 MG/DL (7-18); BUN/CREATININE RATIO 15.8 (6.6-38.0); CALCIUM 8.2 MG/DL (8.5-10.1); CHLORIDE 107 MMOL/L (99-107); CREATININE 0.76 MG/DL (0.40-0.90); GLUCOSE 125 MG/DL (70-104); POTASSIUM 3.6 MMOL/L (3.5-5.1); SODIUM 139 MMOL/L (135-145); TOTAL PROTEIN 7.2 G/DL (6.4-8.2); eGFR 76 ML/MIN
[2021-08-24 22:52] LABS: MAGNESIUM 1.8 MG/DL (1.5-2.4)
[2021-08-25] VITALS (7 sets, daily range): BP systolic 144–167; BP diastolic 73–78
[2021-08-25] MEDS ORDERED: LEVO100T9 PO (00:26)
[2021-08-25] MEDS ORDERED: ondansetron/PF 4mg/2ml inj IV PRN (02:05)
[2021-08-25] MEDS ORDERED: magnesium 4gm in 100ml NS 100 ML IV PRN (02:05)
[2021-08-25] MEDS ORDERED: acetaminophen 325mg tablet PO PRN (02:05)
[2021-08-25] MEDS ORDERED: magnesium Cl slow-release 64mg tablet PO PRN (02:05)
[2021-08-25] MEDS ORDERED: potassium CL 10mEq/100ml bag 100 ML IV PRN (02:05)
[2021-08-25] MEDS ORDERED: magnesium 2GM in 50ml NS 50 ML IV PRN (02:05)
[2021-08-25] MEDS ORDERED: potassium Cl 20 mEq SR tablet PO PRN ×2 (02:05)
[2021-08-25] MEDS ORDERED: magnesium hydroxide 30ml (MOM) UD suspension PO PRN (02:05)
[2021-08-25] MEDS ORDERED: PERFLUTREN PROTEIN-A MICROSPHR (Optison) 0.22 MG/ML 3ML VIAL IV PRN (02:05)
[2021-08-25] MEDS ORDERED: mag hydrox/Alum hydrox/simeth 30ml oral suspension PO PRN (02:05)
[2021-08-25] MEDS ORDERED: aminophylline 250mg/10ml inj. IV PRN (02:15)
[2021-08-25] MEDS ORDERED: regadenoson 0.4mg/5ml syringe IV PRN (02:15)
[2021-08-25] MEDS ORDERED: nitroGLYCERIN 0.4mg SUBLingual tab SL PRN (02:15)
[2021-08-25] MEDS ORDERED: metoprolol tartrate 1mg/ml inj IV PRN (02:15)
[2021-08-25 02:43] LABS: HEMOGLOBIN A1C 5.1 % (4.5-6.2)
[2021-08-25] MEDS ORDERED: enoxaparin 40mg/0.4ml syringe SQ SCH (04:00)
[2021-08-25] MEDS ORDERED: K and/or MAG REPLACEMENT MC SCH (08:00)
[2021-08-25] MEDS ORDERED: docusate sod 100mg capsule PO SCH (08:00)
[2021-08-25] MEDS ORDERED: levoTHYROXINE 100mcg tablet PO SCH (08:44)
[2021-08-25] MEDS ORDERED: liothyronine sod 5mcg tablet PO SCH (08:48)
[2021-08-25] MEDS ORDERED: OLANZapine 2.5MG tablet PO SCH (08:48)
[2021-08-25] MEDS ORDERED: lamoTRIgine 100mg tablet PO SCH (08:54)
--- NOTE | 2021-08-25 09:17 | NUR ---
attempted report to nurse, she will call back, pt is at stress test now and then will go to have echo done, floor staff is aware. Pt taken from ER to nuc med
--- NOTE | 2021-08-25 10:49 | NUR ---
report given to Ekaterina TEJEDA, pt has finished stress test and is going to echo lab before going to room 3014.
--- NOTE | 2021-08-25 11:44 | NUR ---
Patient left AMA. Educate patient on the risk factor and consequences of leaving the hospital. Patient verbalized understanding. IV removed. Patient left with all belongings. Dr. Wade made aware. Message: Eve Medina RM [id number] left AMA . Custom Responses: promotional table spacer Transaction number: [id number]
== END 2021-08-25 11:40 | disposition left against medical advice (07) | DRG 311 ==
LOC: ER 21:58 → ED HOLD 08-25 02:12 → PCU 3S 08-25 11:30
PROVIDERS: ADMIT Internal Medicine; ATTEND Family Medicine
PROC: 4A02XM4 Measurement of Cardiac Total Activity, External Approach (ICD-10-PCS; principal; 2021-08-25)
PROC: 3E033HZ Introduction of Radioactive Substance into Peripheral Vein, Percutaneous Approach (ICD-10-PCS; 2021-08-25)
DX: I20.9 Angina pectoris, unspecified (principal); F31.9 Bipolar disorder, unspecified; Z20.822 Contact with and (suspected) exposure to COVID-19; Z53.29 Procedure and treatment not carried out because of patient's decision for other reasons; F17.210 Nicotine dependence, cigarettes, uncomplicated; F15.90 Other stimulant use, unspecified, uncomplicated; F41.9 Anxiety disorder, unspecified; Z81.8 Family history of other mental and behavioral disorders; Z82.49 Family history of ischemic heart disease and other diseases of the circulatory system; Z90.49 Acquired absence of other specified parts of digestive tract; Z90.710 Acquired absence of both cervix and uterus; Z79.899 Other long term (current) drug therapy
CPT/HCPCS: 36415; 71045; 78452; 80053; 80178; 83036; 83735; 83880; 84439; 84443; 84484; 85025; 87635; 93005; 93017; 93306; 99285; A9500; G0378; J1650; J2785

== ENCOUNTER 2022-12-10 18:29 | Emergency (ER) | payer MEDICARE, OTHER ==
[~2022-12-10] VITALS: Ht 165.1 cm; Wt 89.2 kg
[~2022-12-10 18:29] MED LIST changes: +LEVO100T9 PO; -LEVO112T5 PO
[2022-12-10 19:33] LABS: CLARITY,URINE CLEAR (Clear); COLOR,URINE YELLOW (Yellow); GLUCOSE, URINE NEGATIVE (Neg); KETONES,URINE NEGATIVE (Neg); LEUKOCYTE ESTERASE ,URINE NEGATIVE (Neg); NITRITES, URINE NEGATIVE (Neg); OCCULT BLOOD,URINE TRACE-INTACT (Neg); PROTEIN,URINE NEGATIVE (Neg); UROBILINOGEN,URINE 0.2 E.U/dL (0.2-1.0)
[2022-12-10 19:42] LABS: UA COLLECTION TYPE CLN CATCH MIDSTREAM
[2022-12-10 19:43] LABS: BACTERIA,URINE NONE SEEN /HPF (Neg); MUCUS STRANDS FEW /LPF (Neg); RBC,URINE 0-2 /HPF (0-2); SQUAMOUS EPITHELIAL CELL,UR FEW /LPF (FEW); WBC,URINE 0-4 /HPF (0-4)
[2022-12-10 19:45] VITALS: BP 124/71
[2022-12-10 19:48] LABS: BASOPHILS # (AUTO) 0.1 X10'3 (0-0.2); BASOPHILS % (AUTO) 0.5 % (0-1); EOSINOPHILS # (AUTO) 0.2 X10'3 (0-0.9); EOSINOPHILS % (AUTO) 1.4 % (0-6); HEMATOCRIT 42.1 % (35.0-45.0); HEMOGLOBIN 13.6 g/dl (12.0-16.0); LYMPHOCYTES # (AUTO) 2.1 X10'3 (1.1-4.8); LYMPHOCYTES % (AUTO) 19.6 % (21-51); MEAN CORPUSCULAR HEMOGLOBIN 28.2 PG (27.0-31.0); MEAN CORPUSCULAR HGB CONC 32.3 g/dL (33.0-36.5); MEAN CORPUSCULAR VOLUME 87.4 FL (78-98); MEAN PLATELET VOLUME 9.3 FL (7.4-10.4); MONOCYTES # (AUTO) 0.8 X10'3 (0-0.9); MONOCYTES % (AUTO) 7.3 % (2-12); NEUTROPHILS # (AUTO) 7.7 X10'3 (1.8-7.7); NEUTROPHILS % (AUTO) 71.2 % (42-75); PLATELET COUNT 283 X10'3 (140-440); RED BLOOD COUNT 4.82 X10'6 (4.20-5.60); RED CELL DISTRIBUTION WIDTH 15.1 % (11.5-14.5); WHITE BLOOD COUNT 10.8 X10'3 (4.5-11.0)
[2022-12-10 20:02] LABS: ALANINE AMINOTRANSFERASE 16 U/L (12-78); ALBUMIN 3.6 G/DL (3.4-5.0); ALKALINE PHOSPHATASE 88 IU/L (46-116); ANION GAP 8 (8-16); ASPARTATE AMINO TRANSFERASE 15 U/L (10-37); BILIRUBIN,TOTAL 0.4 MG/DL (0.1-1.0); BLOOD UREA NITROGEN 13 MG/DL (7-18); CALCIUM 9.1 MG/DL (8.5-10.1); CHLORIDE 105 MMOL/L (99-107); CREATININE 0.93 MG/DL (0.40-0.90); GLUCOSE 105 MG/DL (70-104); LIPASE 207 U/L (73-393); POTASSIUM 4.1 MMOL/L (3.5-5.1); SODIUM 138 MMOL/L (135-145); TOTAL CARBON DIOXIDE 24.6 MMOL/L (24-32); TOTAL PROTEIN 7.3 G/DL (6.4-8.2); eGFR 60 ML/MIN
[2022-12-10] MEDS ORDERED: ondansetron/PF 4mg/2ml inj IV ONE (20:55)
[2022-12-10] MEDS ORDERED: normal saline 1000ML IV soln IVB ONE (20:55)
[2022-12-10] MEDS: morphine 4 MG/ML inj SYRINge IV PRN ×2 (21:22→23:05)
[2022-12-10] MEDS ORDERED: LEVO-65 PO (22:49)
[2022-12-10] MEDS ORDERED: METR-159 PO (22:49)
[2022-12-10] MEDS ORDERED: HYDR-3965 PO (22:50)
[2022-12-10] MEDS ORDERED: piperacillin/tazo 4.5gm/100ml 100 ML IV ONE (23:10)
[2022-12-11] MEDS ORDERED: piperacillin/tazo 4.5gm/100ml 100 ML IV ONE (08:00)
== END 2022-12-11 00:14 | disposition home or self-care (01) ==
LOC: ER 18:30
DX: K57.92 Diverticulitis of intestine, part unspecified, without perforation or abscess without bleeding (principal)
CPT/HCPCS: 36415; 74176; 80053; 81001; 83690; 84484; 85025; 96361; 96365; 96375; 96376; 99285; J2270; J2405; J2543; J7030

== ENCOUNTER 2024-09-18 12:00 | Emergency (ER) | payer MEDICARE, OTHER ==
[~2024-09-18] VITALS: Ht 165.1 cm; Wt 74.1 kg
[~2024-09-18 12:00] MED LIST changes: +IBUP-1986 PO; +MULT-1219 PO; -OLAN2.5T28 PO; +OLAN2.5T77 PO
[2024-09-18 12:08] VITALS: TEMP 97.8
[2024-09-18 13:54] LABS: BASOPHILS % (AUTO) 0.5 % (0-1); EOSINOPHILS % (AUTO) 0.6 % (0-6); HEMATOCRIT 43.7 % (35.0-45.0); HEMOGLOBIN 14.6 g/dl (12.0-16.0); LYMPHOCYTES # (AUTO) 1.7 X10'3 (1.1-4.8); LYMPHOCYTES % (AUTO) 24.3 % (21-51); MEAN CORPUSCULAR HEMOGLOBIN 29.3 PG (27.0-31.0); MEAN CORPUSCULAR HGB CONC 33.4 g/dL (33.0-36.5); MEAN CORPUSCULAR VOLUME 87.8 FL (78-98); MONOCYTES # (AUTO) 0.6 X10'3 (0-0.9); MONOCYTES % (AUTO) 8.7 % (2-12); NEUTROPHILS # (AUTO) 4.5 X10'3 (1.8-7.7); NEUTROPHILS % (AUTO) 65.9 % (42-75); PLATELET COUNT 248 X10'3 (140-440); RED BLOOD COUNT 4.98 X10'6 (4.20-5.60); RED CELL DISTRIBUTION WIDTH 14.1 % (11.5-14.5); WHITE BLOOD COUNT 6.9 X10'3 (4.5-11.0)
[2024-09-18] MEDS: normal saline 1000ml 1,000 ML IV SCH (14:00)
[2024-09-18 14:04] LABS: ALBUMIN 3.7 G/DL (3.4-5.0); ANION GAP 8 (8-16); BLOOD UREA NITROGEN 13 MG/DL (7-18); BUN/CREATININE RATIO 14.9 (10.0-20.0); CALCIUM 9.5 MG/DL (8.5-10.1); CHLORIDE 104 MMOL/L (99-107); CREATININE 0.87 MG/DL (0.40-0.90); GLUCOSE 86 MG/DL (70-104); POTASSIUM 4.3 MMOL/L (3.5-5.1); SODIUM 140 MMOL/L (135-145); TOTAL CARBON DIOXIDE 28.3 MMOL/L (24-32); eCRCL 53 ML/MIN; eGFR 64 ML/MIN
[2024-09-18] MEDS ORDERED: iohexol 300mg/ml 100ml inj. ONE (14:35)
[2024-09-18] MEDS ORDERED: LACT10SO66 PO (15:44)
[2024-09-18 16:24] VITALS: BP 130/79; PULSE 73; RESP 19; O2SAT 96
== END 2024-09-18 16:27 | disposition home or self-care (01) ==
LOC: ER 12:01
DX: K59.00 Constipation, unspecified (principal); F31.9 Bipolar disorder, unspecified; F15.90 Other stimulant use, unspecified, uncomplicated; Z90.49 Acquired absence of other specified parts of digestive tract; Z90.710 Acquired absence of both cervix and uterus
CPT/HCPCS: 36415; 74177; 80048; 85025; 96360; 96361; 99285; J7030; Q9967

== ENCOUNTER 2024-10-29 20:00 | Emergency (ER) | payer MEDICARE ==
[~2024-10-29] VITALS: Ht 165.1 cm; Wt 77.3 kg
[~2024-10-29 20:00] MED LIST changes: +LACT10SO66 PO
[2024-10-29 20:03] VITALS: TEMP 97.8
--- NOTE | 2024-10-29 21:52 | Physician Documentation ---
History of Present Illness ~ General Chief Complaint: See Chief Complaint Stated Complaint: SAILAJA LINN Time Seen by MD: 21:51 OK to notify your PCP?: Yes Primary Medical Doctor: URSULA ORELLANA Source: patient, RN/, RN notes reviewed, old records Mode of Arrival: POV Exam Limitations: no limitations History of Present Illness Initial Comments 73 year old female with history of bipolar presents to the emergency department for complaints of a mental health evaluation. Patient states that she had a disagreement with dayanara today and had decided to present to the department today to be compliant with him. She states she is compliant with her medications and she had just seen her primary Dr. Betancourt yesterday. She states that she has been eating and gaining weight. Patient denies any suicidal ideation. Of note, the daughter Nancy was called and she stated that every 2.5 years patient goes manic and needs hospitalization. Patient was last hospitalized in 2022. She is worried that the patient is getting to that point as she recently went on a spending binge, and she had spent 5,000 in one day. She states that her mom can be very manipulative so she is concerned. Patient denies any other associated symptoms at this time. Patient denies any other alleviating or exacerbating factors. Medication Reconciliation Allergies: Coded Allergies: No Known Allergies (Unverified , 09/18/24) Scheduled Estradiol (Estradiol), 1 TAB PO DAILY, (Reported) Lactulose (Enulose), 15 ML PO DAILY Lamotrigine (Lamotrigine), 1 TAB PO BID, (Reported) Levothyroxine Sodium (Levothyroxine Sodium), 1 TAB PO DAILY, (Reported) Liothyronine Sodium (Liothyronine Sodium), 4 TAB PO BKF, (Reported) [place] Carbonate (LITHIUM CARBONATE capsule), 3 CAP PO Q12H, (Reported) Multivitamin (One-Daily Multi-Vitamin), 1 TAB PO DAILY, (Reported) Olanzapine (Olanzapine), 10 MG PO HS, (Reported) Scheduled PRN Ibuprofen (Ibuprofen), 1 TAB PO BID PRN for pain, (Reported) Past Medical History Past Medical History: *GI/HEPATOBILIARY*, Cholelithiasis, Diverticulitis, Kidney Stones, Anxiety, Bipolar Past Surgical History: appendectomy, cholecystectomy, hysterectomy Patient History: FHx: mental illness MOTHER, Onset:Unknown Mother 28 yo MVA. Father 80 + yo CHF. Alcohol Use: None Drug Use: methamphetamine Lives with: Alone Lives In: Home Occupation: retired Review of Systems All Other Systems at this time: Reviewed and Negative ROS As stated above in the HPI, otherwise all systems are reviewed and negative. Physical Exam Physical Exam Vital Signs: RN Vital Signs have been reviewed: Yes, Temperature: 97.8, Source: Oral, Heart Rate: 80, Respiratory Rate: 16, BP: 185/90, Pulse Oximetry: 96, Weight: 77.270 Oxygen Flow Rate: 0 Pulse Oximetry Reflects: adequate oxygenation Physical Exam General: The patient is well developed, well nourished, nontoxic appearing and is in no acute distress. Skin: [place], warm and dry with no rashes. HEENT: Head was normocephalic and atraumatic. Eyes - pupils equal, round, reactive to light and accommodation. Extraocular movements were intact. Conjunctivae were nonicteric. Ears - bilateral tympanic membranes were normal. The mouth and oropharynx were clear with moist mucous membranes. There were no pharyngeal exudates or erythema. Neck: Supple and nontender. There was no jugular venous distention, lymphadenopathy, thyromegaly or masses. Chest: Clear to auscultation bilaterally without wheezes, rales or rhonchi. No accessory muscle use. No dullness to percussion. Heart: Rate regular and rhythmic. S1, S2. No murmurs. Palpation of the chest wall was normal. No rubs or thrills. Abdomen: Soft, nontender and nondistended. Positive bowel sounds. No guarding or rebound. No hepatosplenomegaly or palpable masses. Extremities: No cyanosis, clubbing or edema. The patient moves all extremities. Pulses were equal and symmetric. Neurologic: Cranial nerves II-XII were intact. Sensation was intact to light touch throughout. Motor strength was 5/5 in all four extremities. Deep tendon reflexes were intact in both upper and lower extremities. Psychologic: The patient was oriented to person, place and time. The patient demonstrated appropriate judgement and insight. Progress Progress Note 2204: The patient gave Dr. Ibrahim permission to reach out to family. At this time he had a lengthy phone conversation with the patients daughter Nancy who was informed on her mothers visit and was given greater insight to the patients history. She stated that the patient has an appointment with Dr. Betancourt tomorrow her primary care physician. Results/Orders Results/Orders Vital Signs 10/29/24 20:03 Temp 97.8 Pulse 80 Resp 16 B/P (MAP) 185/90 Pulse Ox 96 O2 Flow Rate 0 Departure Time of Disposition: 22:03 Disposition: 01 HOME / SELF CARE / HOMELESS Impression: Primary Impression: General medical screening exam Condition: Stable Discharge Instructions: Managing Bipolar Disorder Referrals: NO PRIMARY CARE PROVIDER (PCP) Education Educated: Patient Educated regarding: diagnosis, treatment, prognosis Signature Scribe Signature: Scribed for Hamilton Ibrahim MD by Glen Reynolds . 10/29/24 22:04 Attestation: The note accurately reflects work and decisions made by me.Hamilton Ibrahim MD 10/29/24 21:52 HAMILTON IBRAHIM MD October 29, 2024 21:52 GLEN LOBO October 29, 2024 22:05
[2024-10-29] MEDS ORDERED: quetiapine 100mg tablet PO STA (22:27)
[2024-10-29] MEDS ORDERED: QUET25TA PO (22:31)
[2024-10-29] MEDS: QUEtiapine 25mg tablet PO STA (22:47)
[2024-10-29 22:50] VITALS: BP 175/79; PULSE 78; RESP 16; O2SAT 98
== END 2024-10-29 22:52 | disposition home or self-care (01) ==
LOC: ER 20:01
DX: Z00.8 Encounter for other general examination (principal); F31.9 Bipolar disorder, unspecified; F41.9 Anxiety disorder, unspecified; F15.90 Other stimulant use, unspecified, uncomplicated; Z87.440 Personal history of urinary (tract) infections; Z90.49 Acquired absence of other specified parts of digestive tract; Z90.710 Acquired absence of both cervix and uterus
CPT/HCPCS: 99283

== ENCOUNTER 2024-10-31 12:25 | Emergency (ER) | payer MEDICARE ==
[~2024-10-31] VITALS: Ht 165.1 cm; Wt 77.3 kg
[~2024-10-31 12:25] MED LIST changes: +QUET25TA PO
[2024-10-31 12:33] VITALS: TEMP 98.1
--- NOTE | 2024-10-31 12:43 | ELECTROCARDIOGRAPH REPORT ---
[facility] Test Date: 2024-10-31 Test Time: 12:41:10 Pat Name: ATUL CHEN Department: EMERGENCY ROOM Room: Gender: F Cafe Attendant: MARIELLE : 1950 Requested By: HUMBERTO FONTAINE Order Number: [id number] Reading MD: Dr. Hamilton Ibrahim Measurements Intervals [place] Rate: 68 P: 82 MN: 173 QRS: 17 QRSD: 119 T: 88 QT: 469 QTc: 499 Interpretive Statements Atrial-paced complexes Incomplete right bundle branch block Low voltage, precordial leads Minimal ST elevation, inferior leads Electronically Signed On 11-01-2024 15:45:[address] Hamilton Ibrahim Please click the below link to view image of tracing.
[2024-10-31 13:29] LABS: BASOPHILS % (AUTO) 0.6 % (0-1); EOSINOPHILS # (AUTO) 0.1 X10'3 (0-0.9); EOSINOPHILS % (AUTO) 0.9 % (0-6); HEMATOCRIT 40.3 % (35.0-45.0); HEMOGLOBIN 13.4 g/dl (12.0-16.0); LYMPHOCYTES # (AUTO) 1.6 X10'3 (1.1-4.8); LYMPHOCYTES % (AUTO) 21.1 % (21-51); MEAN CORPUSCULAR HEMOGLOBIN 29.5 PG (27.0-31.0); MEAN CORPUSCULAR HGB CONC 33.2 g/dL (33.0-36.5); MONOCYTES # (AUTO) 0.7 X10'3 (0-0.9); NEUTROPHILS # (AUTO) 5.3 X10'3 (1.8-7.7); NEUTROPHILS % (AUTO) 68.4 % (42-75); PLATELET COUNT 254 X10'3 (140-440); RED BLOOD COUNT 4.53 X10'6 (4.20-5.60); RED CELL DISTRIBUTION WIDTH 16.1 % (11.5-14.5); WHITE BLOOD COUNT 7.8 X10'3 (4.5-11.0)
[2024-10-31 13:48] LABS: ALANINE AMINOTRANSFERASE 18 U/L (12-78); ALBUMIN 3.6 G/DL (3.4-5.0); ALKALINE PHOSPHATASE 107 IU/L (46-116); ANION GAP 6 (8-16); ASPARTATE AMINO TRANSFERASE 22 U/L (10-37); BILIRUBIN,TOTAL 0.3 MG/DL (0.1-1.0); BLOOD UREA NITROGEN 17 MG/DL (7-18); BUN/CREATININE RATIO 24.3 (10.0-20.0); CALCIUM 9.1 MG/DL (8.5-10.1); CHLORIDE 106 MMOL/L (99-107); GLUCOSE 84 MG/DL (70-104); POTASSIUM 3.6 MMOL/L (3.5-5.1); SODIUM 143 MMOL/L (135-145); TOTAL CARBON DIOXIDE 30.9 MMOL/L (24-32); TOTAL PROTEIN 7.3 G/DL (6.4-8.2); eCRCL 66 ML/MIN; eGFR 82 ML/MIN
[2024-10-31 13:55] LABS: PRO BRAIN NATRIURETIC PEPTIDE < 30 PG/ML (0-125)
--- NOTE | 2024-10-31 14:22 | Physician Documentation ---
History of Present Illness ~ Chief Complaint: Dizziness Stated Complaint: BACK PAIN Time Seen by MD: 13:51 OK to notify your PCP?: Yes Primary Medical Doctor: URSULA ORELLANA Source: patient Mode of Arrival: Ambulatory Exam Limitations: no limitations HPI This is a 73-year-old female who comes in complaining of being low back pain. The patient for some reason in his a poor historian in does not seem to want to answer many questions. The patient states that she was dizzy and fell. She denies chest pain or shortness of breath part of the fall. She denies visual disturbances. She states she gets dizzy often and believes that is secondary to her medications she takes but she does not know which medication is was causing the dizziness. Medication Reconciliation Allergies: Coded Allergies: No Known Allergies (Unverified , 10/31/24) Scheduled Estradiol (Estradiol), 1 TAB PO DAILY, (Reported) Lactulose (Enulose), 15 ML PO DAILY Lamotrigine (Lamotrigine), 1 TAB PO BID, (Reported) Levothyroxine Sodium (Levothyroxine Sodium), 1 TAB PO DAILY, (Reported) Liothyronine Sodium (Liothyronine Sodium), 4 TAB PO BKF, (Reported) [place] Carbonate (LITHIUM CARBONATE capsule), 3 CAP PO Q12H, (Reported) Multivitamin (One-Daily Multi-Vitamin), 1 TAB PO DAILY, (Reported) Olanzapine (Olanzapine), 10 MG PO HS, (Reported) Quetiapine Fumarate (Seroquel), 1 TAB PO HS Scheduled PRN Ibuprofen (Ibuprofen), 1 TAB PO BID PRN for pain, (Reported) Past Medical History Past Medical History: *GI/HEPATOBILIARY*, Cholelithiasis, Diverticulitis, Kidney Stones, Anxiety, Bipolar Past Surgical History: appendectomy, cholecystectomy, hysterectomy Patient History: FHx: mental illness MOTHER, Onset:Unknown Mother 28 yo MVA. Father 80 + yo CHF. Alcohol Use: None Drug Use: methamphetamine Lives with: Alone Lives In: Home Occupation: retired Physical Exam Physical Exam Vital Signs: Temperature: 98.1, Heart Rate: 64, Respiratory Rate: 15, BP: 138/67, Pulse Oximetry: 96, Weight: 77.270 Pulse Oximetry Reflects: adequate oxygenation General Appearance: alert, WD/WN, no apparent distress Back To inspection of the back no obvious trauma or gross deformity. There was midl ine point tenderness at the area of the thoracolumbar junction. No obvious step-off or deformity Neurologic: oriented x4, grease buffer II-XII nml as tested, memory intact, oriented to time, oriented to person, oriented to place, oriented to events Psychiatric: depressed affect Skin: normal color, warm/dry Progress Results/Orders Reviewed/noted all lab results: Yes Results/Orders Orders - ELMA OMER Lumbar Spine Limited (10/31/24 14:19) Completed Orders - ELMA OMER Lumbar Spine Limited (10/31/24 14:19) Vital Signs 10/31/24 10/31/24 10/31/24 12:33 13:58 14:15 Temp 98.1 Pulse 69 64 Resp 16 15 15 B/P (MAP) 146/60 138/67 (90) Pulse Ox 97 96 Laboratory Tests Test 10/31/24 13:20 10/31/24 15:05 White Blood Count 7.8 Red Blood Count 4.53 Hemoglobin 13.4 Hematocrit 40.3 Mean Corpuscular Volume 89.0 Mean Corpuscular Hemoglobin 29.5 Mean Corpuscular Hemoglobin Concent 33.2 Red Cell Distribution Width 16.1 H Platelet Count 254 Mean Platelet Volume 9.0 Neutrophils (%) (Auto) 68.4 Lymphocytes (%) (Auto) 21.1 Monocytes (%) (Auto) 9.0 Eosinophils (%) (Auto) 0.9 Basophils (%) (Auto) 0.6 Neutrophils # (Auto) 5.3 Lymphocytes # (Auto) 1.6 Monocytes # (Auto) 0.7 Eosinophils # (Auto) 0.1 Basophils # (Auto) 0.0 CBC Comment Sodium Level 143 Potassium Level 3.6 Chloride Level 106 Carbon Dioxide Level 30.9 Anion Gap 6 L Blood Urea Nitrogen 17 Creatinine 0.70 Estimated GFR/1.73 m2 82 BUN/Creatinine Ratio 24.3 H Glucose Level 84 Calcium Level 9.1 Total Bilirubin 0.3 Aspartate Amino Transf (AST/SGOT) 22 Alanine Aminotransferase (ALT/SGPT) 18 Alkaline Phosphatase 107 Troponin I High Sensitivity 6 8 Pro-B-Type Natriuretic Peptide < 30 Total Protein 7.3 Albumin 3.6 Globulin 3.7 Albumin/Globulin Ratio 1.0 L Chemistry Comments Troponin I High Sens Percent Delta 33 Troponin I Hi Sens Absolute Change 2 EKG/XRAY/CT/US/VASC/MRI Bone/Soft Tissue X-Ray (Spine) : Interpreted By: self Additional Comment X-ray lumbar spine three-view interpreted by me: Degenerative changes. No evidence of fracture. No subluxation Medical Decision Making Findings X-rays of the lumbar spine did not show evidence of fracture. The patient typically walks with a seated walker with told her to continue this and you can take ibuprofen or Tylenol for pain. Follow up with the primary care physician for recheck in the next one or two days and return for any worsening or concerning symptoms. The patient was no signs of cauda equina syndrome or focal neuro deficits. Differential Diagnosis Low back injury. Vertebral body fracture. Dizziness. Departure Disposition: 01 HOME / SELF CARE / HOMELESS Impression: Primary Impression: Lower back injury Condition: Stable Discharge Instructions: Acute Back Pain, Adult Additional Instructions: Take ibuprofen or Tylenol for your pain and apply cold compresses for 20 minutes every 2 hours for the 1st three days to the area of pain in her back. Follow up with your primary care physician for recheck in the next one or two days and return to the ER for any worsening or concerning symptoms. Referrals: NO PRIMARY CARE PROVIDER (PCP) Signature Scribe Signature: No scribe Attestation: The note accurately reflects work and decisions made by me.Elma DURBIN 10/31/24 15:41 LEMA OMER October 31, 2024 14:22
--- NOTE | 2024-10-31 15:30 | RADIOLOGY REPORT ---
INDICATION: Low back pain status post fall TECHNIQUE: 4 views of the lumbar spine were obtained. COMPARISON: LUMBAR SPINE LIMITED on DOS: 01/19/23 FINDINGS: There are no acute fractures or subluxations. Vascular calcifications of the aorta. IMPRESSION: No acute fracture or subluxation.
[2024-10-31 15:53] VITALS: BP 116/77; PULSE 73; RESP 16; O2SAT 94
== END 2024-10-31 16:04 | disposition home or self-care (01) ==
LOC: ER 12:26
DX: S39.92XA Unspecified injury of lower back, initial encounter (principal); F15.90 Other stimulant use, unspecified, uncomplicated; F31.9 Bipolar disorder, unspecified; Z90.49 Acquired absence of other specified parts of digestive tract; Z90.710 Acquired absence of both cervix and uterus; W19.XXXA Unspecified fall, initial encounter; Y93.89 Activity, other specified; Y92.89 Other specified places as the place of occurrence of the external cause; Y99.8 Other external cause status
CPT/HCPCS: 36415; 72100; 80053; 83880; 84484; 85025; 93005; 99285

== ENCOUNTER 2024-11-07 07:30 | Emergency (ER) | payer MEDICARE ==
[~2024-11-07] VITALS: Ht 165.1 cm; Wt 81.5 kg
[2024-11-07 07:33] VITALS: TEMP 97.8
[2024-11-07] MEDS: LORazepam 1 MG tablet PO ONE (07:52)
--- NOTE | 2024-11-07 08:21 | Physician Documentation ---
History of Present Illness ~ Chief Complaint: Anxiety Stated Complaint: STRESS Time Seen by MD: 07:43 Primary Medical Doctor: URSULA ORELLANA HPI 73 year old female reports anxiety and racing thoughts. Denies HI/SI, other medical complaints. Medication Reconciliation Allergies: Coded Allergies: No Known Allergies (Unverified , 11/07/24) Scheduled Estradiol (Estradiol), 1 TAB PO DAILY, (Reported) Lactulose (Enulose), 15 ML PO DAILY Lamotrigine (Lamotrigine), 1 TAB PO BID, (Reported) Levothyroxine Sodium (Levothyroxine Sodium), 1 TAB PO DAILY, (Reported) Liothyronine Sodium (Liothyronine Sodium), 4 TAB PO BKF, (Reported) [place] Carbonate (LITHIUM CARBONATE capsule), 3 CAP PO Q12H, (Reported) Multivitamin (One-Daily Multi-Vitamin), 1 TAB PO DAILY, (Reported) Olanzapine (Olanzapine), 10 MG PO HS, (Reported) Quetiapine Fumarate (Seroquel), 1 TAB PO HS Scheduled PRN Ibuprofen (Ibuprofen), 1 TAB PO BID PRN for pain, (Reported) Past Medical History Past Medical History: *GI/HEPATOBILIARY*, Cholelithiasis, Diverticulitis, Kidney Stones, Anxiety, Bipolar Past Surgical History: appendectomy, cholecystectomy, hysterectomy Patient History: FHx: mental illness MOTHER, Onset:Unknown Mother 28 yo MVA. Father 80 + yo CHF. Alcohol Use: None Drug Use: methamphetamine Lives with: Alone Lives In: Home Occupation: retired Review of Systems All Other Systems at this time: Reviewed and Negative Physical Exam Vital Signs: RN Vital Signs have been reviewed: Yes, Temperature: 97.8, Source: Temporal, Heart Rate: 87, Respiratory Rate: 16, BP: 194/88, Pulse Oximetry: 97, Weight: 81.500 Physical Exam HEENT: PERRL, moist oral mucosa, EOMI Pulmonary: No respiratory distress MSK: no deformity Skin: w/d/i, no rash Neuro: alert, nonfocal Psych: normal affect Progress Results/Orders Results/Orders Completed Orders - KENNETH JO MD Lorazepam Tablet (Ativan Tablet) (11/07/24 07:45) Vital Signs 11/07/24 11/07/24 11/07/24 07:33 07:47 08:25 Temp 97.8 Pulse 87 76 Resp 18 16 15 B/P (MAP) 194/88 184/86 Pulse Ox 97 99 Medical Decision Making Findings 73 year old female with anxiety. Provided anxiolytic and patient shortly t hereafter wished to leave. Discharged with return precautions. Differential Dx:Considerations: Include: Anxiety, Panic disorder, Personality disorder, Substance abuse, Suicidal Departure Disposition: 01 HOME / SELF CARE / HOMELESS Impression: Primary Impression: Anxiety Condition: Stable Discharge Instructions: Managing Anxiety, Adult Referrals: NO PRIMARY CARE PROVIDER (PCP) Education Educated: Patient Educated regarding: diagnosis, treatment, prognosis, need for follow up Signature Scribe Signature: . Attestation: . KENNETH JO MD November 07, 2024 08:21
[2024-11-07 08:25] VITALS: BP 184/86; PULSE 76; RESP 15; O2SAT 99
== END 2024-11-07 08:30 | disposition home or self-care (01) ==
LOC: ER 07:30
DX: F41.9 Anxiety disorder, unspecified (principal); F31.9 Bipolar disorder, unspecified; F15.90 Other stimulant use, unspecified, uncomplicated; Z87.440 Personal history of urinary (tract) infections; Z90.49 Acquired absence of other specified parts of digestive tract; Z90.710 Acquired absence of both cervix and uterus
CPT/HCPCS: 99283